=== PATIENT | female | born 1950 | race Caucasian/White ===

== ENCOUNTER 2017-12-17 09:06 | Day surgery (SDC) | payer OTHER, MEDICARE ==
[~2017-12-17] VITALS: Ht 154.9 cm; Wt 84.0 kg
[~2017-12-17 09:06] MED LIST: AMIODARONE HCL200 MG PO; BISOPROLOL FUMAR5 MG PO; CO Q-10400 MG PO; FORTAMET1000 M1 PO; METFORMIN HCL500 M1 PO; ONGLYZA5 MG PO; PERCOCET 5/31 TABLET PO; WARFARIN SODIUM5 MG PO; XARELTO20 MG PO; ZOFRAN4 MG PO; ZYBAN 150 MG T150 MG PO
== END 2017-12-17 16:30 | disposition home or self-care (01) ==
LOC: CATH 09:06
PROVIDERS: Internal Medicine Cardiovascular Disease
DX: R94.39 Abnormal result of other cardiovascular function study (principal); I48.0 Paroxysmal atrial fibrillation; I38 Endocarditis, valve unspecified; R06.02 Shortness of breath; Z79.01 Long term (current) use of anticoagulants; E11.9 Type 2 diabetes mellitus without complications; Z88.8 Allergy status to other drugs, medicaments and biological substances
CPT/HCPCS: 82948; 93005; C1769; C1887; J1644; J2250; J3010; J7040